=== PATIENT | female | born 1990 | race Caucasian/White ===

== ENCOUNTER 2018-07-07 15:10 | Emergency (ER) | payer SELFPAY ==
[~2018-07-07] VITALS: Wt 70.1 kg
[2018-07-07 15:34] VITALS: BP 141/91; PULSE 64; RESP 18
== END 2018-07-07 21:13 | disposition left against medical advice (07) ==
LOC: FTE 15:10
DX: Z53.21 Procedure and treatment not carried out due to patient leaving prior to being seen by health care provider (principal)

== ENCOUNTER 2019-01-10 14:32 | Inpatient (IN) | payer MEDICAID ==
[~2019-01-10] VITALS: Ht 172.7 cm; Wt 82.9 kg
[~2019-01-10 14:32] MED LIST: ACET325T33 PO; ACYC400T2 PO; CIPR500T4 PO; IBUP800T48 PO
[2019-01-10 14:57] VITALS: Ht 172.7 cm; Wt 82.9 kg
[2019-01-10 14:58] VITALS: BP 129/70; PULSE 75; RESP 18
[2019-01-10] MEDS: LACTATED RINGER'S 1,000 ML IV SCH ×3 (16:01→21:55)
[2019-01-10] MEDS ORDERED: TERBUTALINE 1 MG/ML INJ SC ONE (18:00)
[2019-01-10] MEDS: NIFEdipine 10 MG CAP PO SCH (19:30)
[2019-01-10] MEDS: BETAMET NA PHOS/AC(6 MG/ML) 2 ML INJ SYG IM SCH (19:54)
[2019-01-11] MEDS ORDERED: DIPHENHYDRAMINE 50 MG CAP PO ONE (04:00)
[2019-01-11] MEDS: NIFEdipine 10 MG CAP PO SCH (05:56)
[2019-01-11] MEDS: LACTATED RINGER'S 1,000 ML IV SCH (05:58)
[2019-01-11] MEDS ORDERED: ACYCLOVIR 400 MG TAB PO SCH (09:00)
[2019-01-11] MEDS ORDERED: PRENATAL VITAMIN PO SCH (09:00)
[2019-01-11] MEDS ORDERED: FERROUS SULFATE (EC) 325 MG TAB PO SCH (09:00)
[2019-01-11] MEDS ORDERED: TERBUTALINE 1 ML ONE (09:27)
[2019-01-11] MEDS ORDERED: TERBUTALINE 1 MG/ML INJ SC ONE (09:30)
[2019-01-11] MEDS ORDERED: MAGNESIUM SULFATE 20 GM/500 ML 500 ML IV SCH (09:51)
[2019-01-11] MEDS ORDERED: MAGNESIUM SULFATE 4 GM/100 ML 100 ML IV ONE (10:00)
[2019-01-11] MEDS ORDERED: CEFAZOLIN 2 GM/50 ML (PMX) 50 ML IVPB ONE (10:00)
[2019-01-11] MEDS ORDERED: BETAMET NA PHOS/AC(6 MG/ML) 5ML INJ IM SCH ×2 (10:30)
[2019-01-11] MEDS: BETAMET NA PHOS/AC(6 MG/ML) 2 ML INJ SYG IM SCH (10:32)
[2019-01-11] MEDS ORDERED: CARBOPROST 250 MCG INJ IM PRN ×2 (13:30→19:00)
[2019-01-11] MEDS ORDERED: METHYLERGONOVINE 0.2 MG INJ IM PRN ×2 (13:30→19:00)
[2019-01-11] MEDS ORDERED: OXYTOCIN 30 UNITS/LR 500 ML IV PRN ×2 (13:30→19:00)
[2019-01-11] MEDS ORDERED: OXYTOCIN 30 UNITS/LR 500 ML IV SCH (13:30)
[2019-01-11] MEDS ORDERED: MISOPROSTOL 200 MCG TAB PR PRN ×2 (13:30→19:00)
[2019-01-11] MEDS ORDERED: FENTAnyl 50 MCG/ML VIAL ONE (13:46)
[2019-01-11] MEDS ORDERED: morphine SULFATE/PF (10 MG/10 ML) INJ ONE (13:46)
[2019-01-11] MEDS ORDERED: ONDANSETRON 4 MG INJ ONE (13:46)
[2019-01-11] MEDS ORDERED: OXYTOCIN 10 UNIT INJ ONE (13:46)
[2019-01-11] MEDS ORDERED: PHENYLephrine (100 MCG/ML) 10ML SYG ONE (14:14)
[2019-01-11] MEDS ORDERED: ACETAMINOPHEN 500 MG TAB PO STA (14:50)
[2019-01-11] MEDS ORDERED: KETOROLAC 30 MG INJ IV STA (14:50)
[2019-01-11] MEDS ORDERED: ONDANSETRON 4 MG INJ IV PRN ×2 (15:00→17:30)
[2019-01-11] MEDS ORDERED: AZITHROMYCIN 500MG/NS (PMX) 250 ML IVPB ONE (15:00)
[2019-01-11] MEDS ORDERED: TRIMETHOBENZAMIDE 100 MG/ML VIAL IM PRN ×2 (15:00→17:30)
[2019-01-11] MEDS ORDERED: NALBUPHINE HCL (10 MG/1 ML) INJ IV PRN ×2 (15:00→17:30)
[2019-01-11] MEDS ORDERED: DIPHENHYDRAMINE 50 MG INJ IV PRN ×2 (15:00→17:30)
[2019-01-11] MEDS ORDERED: morphine 2 MG INJ IV PRN (17:30)
[2019-01-11] MEDS ORDERED: NALOXONE (0.4 MG/ML) INJ IV PRN (17:30)
[2019-01-11] MEDS ORDERED: LACTATED RINGER'S 1,000 ML IV SCH (18:49)
[2019-01-11 18:50] VITALS: BP 120/64; PULSE 75; RESP 18
[2019-01-11] MEDS ORDERED: LANOLIN HPA 1 PKT TOP PRN (19:00)
[2019-01-11] MEDS ORDERED: HYDROCODONE/APAP (5/325) TAB PO PRN (19:00)
[2019-01-11] MEDS ORDERED: NA PHOSPHATE/BIPHOS 133 ML ENEMA PR PRN (19:00)
[2019-01-11] MEDS ORDERED: OXYCODONE/ACETAMINOPHEN (5/325) TAB PO PRN (19:00)
[2019-01-11 19:45] VITALS: BP 123/70; PULSE 70; RESP 18
[2019-01-11] MEDS: morphine 2 MG INJ IV PRN (20:53)
[2019-01-11] MEDS: SENNA/DOCUSATE NA (8.6MG/50MG) TAB PO SCH (21:00)
[2019-01-11] MEDS: ACYCLOVIR 400 MG TAB PO SCH (21:10)
[2019-01-11] MEDS: CEFAZOLIN 2 GM/50 ML (PMX) 50 ML IVPB SCH (21:10)
[2019-01-11] MEDS: IBUPROFEN 800 MG TAB PO SCH (22:00)
[2019-01-12] VITALS: BP 126/78; PULSE 73; RESP 18
[2019-01-12 04:00] VITALS: BP 107/56; PULSE 69; RESP 18
[2019-01-12] MEDS: CEFAZOLIN 2 GM/50 ML (PMX) 50 ML IVPB SCH ×2 (05:57→13:55)
[2019-01-12] MEDS: CLINDAMYCIN 300 MG CAP PO SCH ×4 (05:57→18:01)
[2019-01-12] MEDS ORDERED: LACTATED RINGER'S 1,000 ML IV SCH (06:00)
[2019-01-12] MEDS: IBUPROFEN 800 MG TAB PO SCH ×3 (06:00→21:52)
[2019-01-12 08:30] VITALS: BP 114/68; PULSE 67; RESP 18
[2019-01-12] MEDS: morphine 2 MG INJ IV PRN (08:40)
[2019-01-12] MEDS: ACYCLOVIR 400 MG TAB PO SCH ×3 (08:40→21:53)
[2019-01-12] MEDS: SENNA/DOCUSATE NA (8.6MG/50MG) TAB PO SCH ×2 (08:40→21:52)
[2019-01-12 12:30] VITALS: BP 124/60; PULSE 70; RESP 16
[2019-01-12] MEDS ORDERED: BISACODYL 10 MG SUPP PR ONE (13:00)
[2019-01-12 20:25] VITALS: BP 114/80; PULSE 72; RESP 18
[2019-01-13] MEDS: CLINDAMYCIN 300 MG CAP PO SCH ×5 (00:38→23:43)
[2019-01-13 04:00] VITALS: BP 117/75; PULSE 69; RESP 18
[2019-01-13] MEDS: IBUPROFEN 800 MG TAB PO SCH ×3 (06:10→21:36)
[2019-01-13 07:30] VITALS: BP 117/69; PULSE 78; RESP 18
[2019-01-13] MEDS: SENNA/DOCUSATE NA (8.6MG/50MG) TAB PO SCH ×2 (10:08→20:38)
[2019-01-13] MEDS: ACYCLOVIR 400 MG TAB PO SCH ×3 (10:08→20:38)
[2019-01-13 16:49] VITALS: BP 127/79; PULSE 77; RESP 16
[2019-01-13] MEDS: CIPROFLOXACIN 500 MG TAB PO SCH ×2 (17:26→18:00)
[2019-01-13 20:00] VITALS: BP 106/70; PULSE 65; RESP 17
[2019-01-14 04:17] VITALS: BP 110/74; PULSE 60; RESP 18
[2019-01-14] MEDS: CLINDAMYCIN 300 MG CAP PO SCH ×3 (05:37→18:20)
[2019-01-14] MEDS: CIPROFLOXACIN 500 MG TAB PO SCH ×2 (05:37→18:20)
[2019-01-14] MEDS: IBUPROFEN 800 MG TAB PO SCH ×2 (05:37→15:32)
[2019-01-14 08:30] VITALS: BP 113/68; PULSE 77; RESP 16
[2019-01-14] MEDS ORDERED: MEASLES,MUMPS,RUBELLA VACCINE INJ SC* ONE (09:00)
[2019-01-14] MEDS ORDERED: DIPHTH/TET/ACEL PERTUSS (ADULT) 0.5 ML VIAL IM* ONE (09:00)
[2019-01-14] MEDS: ACYCLOVIR 400 MG TAB PO SCH ×3 (09:46→21:00)
[2019-01-14] MEDS: SENNA/DOCUSATE NA (8.6MG/50MG) TAB PO SCH ×2 (09:46→21:00)
[2019-01-14 16:35] VITALS: BP 120/73; PULSE 81; RESP 17
[2019-01-14] MEDS ORDERED: ACETAMINOPHEN 325 MG TAB PO PRN (19:00)
[2019-01-14 19:45] VITALS: BP 124/73; PULSE 84; RESP 18
== END 2019-01-14 20:15 | disposition home or self-care (01) | DRG 786 ==
LOC: OBT 14:32 → L-D 14:33 → OBT 15:26 → L-D 15:26 → PP1 01-11 18:25
PROVIDERS: ADMIT Obstetrics & Gynecology; ATTEND Obstetrics & Gynecology
PROC: 10D00Z1 Extraction of Products of Conception, Low, Open Approach (ICD-10-PCS; principal; 2019-01-11 13:00)
DX: O76 Abnormality in fetal heart rate and rhythm complicating labor and delivery (principal); O60.13X0 Preterm labor second trimester with preterm delivery third trimester, not applicable or unspecified; O36.8130 Decreased fetal movements, third trimester, not applicable or unspecified; O77.0 Labor and delivery complicated by meconium in amniotic fluid; Z3A.36 36 weeks gestation of pregnancy; Z37.0 Single live birth
CPT/HCPCS: 76815; 76818; 85025; 85610; 85730; 86592; 86850; 86900; 86901; 87340; 99464; G0463; J0690; J0702; J1885; J2270; J2274; J2370; J2405; J2590; J3010; J3105; J3475; J7120